=== PATIENT | female | born 1980 | race Caucasian/White ===

== ENCOUNTER 2019-07-19 10:02 | Inpatient (IN) | payer BC, MEDICAID ==
[~2019-07-19] VITALS: Ht 162.6 cm; Wt 70.1 kg
[2019-07-19 10:54] LABS: Basophils # (auto) 0 uL; Basophils % (auto) 0.1 % (0.0-2.0); Eosinophils # (auto) 0.1 uL; Eosinophils % (auto) 0.3 % (0.0-7.0); Hematocrit 46.1 % (36.0-46.0); Hemoglobin 15.6 g/dL (12.2-16.2); Lymphocytes # (auto) 1.3 uL; Lymphocytes % (auto) 7.7 % (10.0-50.0); Mean Corpuscular Hemoglobin 32.4 pg (28.0-32.0); Mean Corpuscular Hgb Conc. 33.9 g/dL (32.0-36.0); Mean Corpuscular Volume 95.6 fL (80.0-100.0); Neutrophils # (auto) 14.5 uL; Neutrophils % (auto) 85.9 % (37.0-80.0); Platelet Count (auto) 290 10^3/uL (140-450); Red Blood Cells 4.82 10^6/uL (4.0-5.20); Red Cell Distribution Width 12.9 % (11.8-14.3); White Blood Cell 16.9 10^3/uL (4.4-10.8)
[2019-07-19 11:03] LABS: Potassium 3.7 mmol/L (3.5-5.1)
[2019-07-19 11:06] LABS: BUN/Creatinine Ratio 6.6; Bilirubin, Total 0.5 mg/dL (0.2-1.0); Total Protein 8.3 g/dL (6.4-8.2)
[2019-07-19 11:16] LABS: Urine Bacteria NONE SEEN /hpf (None Seen); Urine Blood 1+ /uL (Negative); Urine Mucus FEW (None Seen); Urine Specific Gravity 1.024 (1.001-1.035); Urine WBC 2 /hpf (0 - 5)
[2019-07-19] MEDS ORDERED: SODIUM CHLORIDE 0.9% 1,000 ML IV ONE ×2 (11:40)
[2019-07-19] MEDS ORDERED: metroNIDAZOLE 500MG/100ML 100 ML IV ONE (11:45)
[2019-07-19] MEDS ORDERED: ONDANSETRON HCL 4 MG/2 ML VIAL IV ONE (11:45)
[2019-07-19] MEDS ORDERED: DIPHENOXYLATE W/ATROPINE 2.5 MG TAB PO ONE (11:45)
[2019-07-19] MEDS ORDERED: KETOROLAC TROMETH 30 MG/ML 1ML VIAL IV ONE (14:00)
[2019-07-19] MEDS ORDERED: PIPERACILLIN-TAZOB 3.375GM 100 ML IV ONE (14:45)
[2019-07-19] MEDS ORDERED: ACETAMINOPHEN 325 MG TAB PO PRN (20:45)
[2019-07-19] MEDS ORDERED: LOPERAMIDE HCL 2 MG CAP PO PRN (20:45)
[2019-07-19] MEDS ORDERED: HYDROcodone-ACET 5/325MG TAB PO PRN (20:45)
[2019-07-19] MEDS ORDERED: TEMAZEPAM 15 MG CAP PO PRN (20:45)
[2019-07-19 21:04] LABS: Hemoglobin 12.7 g/dL (12.2-16.2)
[2019-07-19] MEDS: MORPHINE SULF INJ 2 MG/ML SYRINGE 1ML IV PRN (21:16)
[2019-07-19] MEDS: ONDANSETRON HCL 4 MG/2 ML VIAL IV PRN (21:16)
[2019-07-19] MEDS: SODIUM CHLORIDE 0.9% 1,000 ML IV SCH (21:30)
[2019-07-19] MEDS: FAMOTIDINE 20 MG TAB PO SCH (21:43)
[2019-07-19] MEDS: metroNIDAZOLE 500MG/100ML 100 ML IV SCH (21:43)
[2019-07-19 22:30] VITALS: BP 127/74
[2019-07-19 23:12] VITALS: BP 127/74
--- NOTE | 2019-07-19 23:26 | NUR ---
MS admit from [facility] admitted to [facility]. Patient oriented to JAMI ZHU, RN primary RN, unit, room, bed, and unit policies regarding patient care. Patient weighed by bedscale and encouraged to call if they need something. All questions and concerns addressed, patient verbalized understanding.
--- NOTE | 2019-07-19 23:27 | NUR ---
GUY ROBISON states they want to leave the floor Against Medical Advice (AMA) to go outside and smoke during her stay. Patient advised of the risks and benefits of leaving AMA. Patient verbalized understanding and signed required AMA form placed in hard chart.
[2019-07-20] VITALS (7 sets, daily range): BP systolic 93–128; BP diastolic 59–83
[2019-07-20] MEDS ORDERED: FLUO-125 PO (05:16)
[2019-07-20] MEDS: ONDANSETRON HCL 4 MG/2 ML VIAL IV PRN ×2 (06:20→20:19)
[2019-07-20] MEDS: MORPHINE SULF INJ 2 MG/ML SYRINGE 1ML IV PRN ×2 (06:21→20:22)
[2019-07-20] MEDS: LOPERAMIDE HCL 2 MG CAP PO PRN (06:21)
[2019-07-20] MEDS: metroNIDAZOLE 500MG/100ML 100 ML IV SCH ×3 (06:27→21:14)
[2019-07-20 06:50] LABS: Basophils # (auto) 0 uL; Basophils % (auto) 0.3 % (0.0-2.0); Eosinophils # (auto) 0.1 uL; Eosinophils % (auto) 1.1 % (0.0-7.0); Hemoglobin 12.6 g/dL (12.2-16.2); Lymphocytes # (auto) 1.8 uL; Lymphocytes % (auto) 14.7 % (10.0-50.0); Mean Corpuscular Hemoglobin 32.4 pg (28.0-32.0); Mean Corpuscular Volume 95.4 fL (80.0-100.0); Monocytes # (auto) 0.9 uL; Monocytes % (auto) 7.2 % (0.0-12.0); Neutrophils # (auto) 9.6 uL; Neutrophils % (auto) 76.7 % (37.0-80.0); Platelet Count (auto) 232 10^3/uL (140-450); Red Blood Cells 3.88 10^6/uL (4.0-5.20); Red Cell Distribution Width 12.6 % (11.8-14.3); White Blood Cell 12.5 10^3/uL (4.4-10.8)
[2019-07-20 07:07] LABS: BUN/Creatinine Ratio 10.3; Calcium 7.8 mg/dL (8.5-10.1); Potassium 3.4 mmol/L (3.5-5.1)
[2019-07-20] MEDS: SODIUM CHLORIDE 0.9% 1,000 ML IV SCH (09:05)
[2019-07-20] MEDS: FAMOTIDINE 20 MG TAB PO SCH ×2 (09:05→21:14)
[2019-07-20] MEDS: cefTRIAXone 1GM/50ML D5W 50 ML IV SCH (09:05)
--- NOTE | 2019-07-20 11:11 | NUR ---
at bedside Dr. Jameson, for GI consult. Pt concerns addressed at this time and pt updated on POC.
[2019-07-20] MEDS ORDERED: POTASSIUM CHL 20MEQ/100ML 100 ML IV ONE (14:00)
[2019-07-20] MEDS ORDERED: CALCIUM CHL 100MG/ML 1,000 MG in D5W 5% 100 ML IV ONE (15:00)
--- NOTE | 2019-07-20 17:32 | NUR ---
Opening Shift Note Assumed care of patient, awake and alert. No S/S of distress/SOB. Instructed on POC and to call for assist PRN, will continue to monitor for changes Q1hr and PRN. Bed set in lowest locked position for safety and call light is within reach.
[2019-07-20] MEDS: CALCIUM W/VIT D (600MG/400IU) TAB PO SCH (18:19)
--- NOTE | 2019-07-20 19:40 | NUR ---
Opening Shift Note Assumed care of patient, awake and alert. No S/S of distress/SOB. With tolerable abdominal pain at this time. Instructed on POC and to call for assist PRN, patient verbalized understanding, call light within reach, will continue to monitor for changes Q1hr and PRN.
[2019-07-21] MEDS: SODIUM CHLORIDE 0.9% 1,000 ML IV SCH (01:22)
[2019-07-21 05:00] VITALS: BP 123/69
[2019-07-21 05:30] LABS: Basophils # (auto) 0 uL; Basophils % (auto) 0.5 % (0.0-2.0); Eosinophils # (auto) 0.2 uL; Eosinophils % (auto) 2.2 % (0.0-7.0); Hematocrit 36.9 % (36.0-46.0); Hemoglobin 12.7 g/dL (12.2-16.2); Lymphocytes # (auto) 1.7 uL; Lymphocytes % (auto) 19.1 % (10.0-50.0); Mean Corpuscular Hemoglobin 33.1 pg (28.0-32.0); Mean Corpuscular Hgb Conc. 34.4 g/dL (32.0-36.0); Mean Corpuscular Volume 96.2 fL (80.0-100.0); Monocytes # (auto) 0.7 uL; Monocytes % (auto) 7.4 % (0.0-12.0); Neutrophils # (auto) 6.4 uL; Neutrophils % (auto) 70.8 % (37.0-80.0); Platelet Count (auto) 235 10^3/uL (140-450); Red Blood Cells 3.84 10^6/uL (4.0-5.20); Red Cell Distribution Width 12.8 % (11.8-14.3); White Blood Cell 9.1 10^3/uL (4.4-10.8)
[2019-07-21 05:40] LABS: INR 1.01 (0.9-1.15); Partial Thromboplastin Time 29.3 sec (23.64-32.05)
[2019-07-21 05:45] LABS: Calcium 8.1 mg/dL (8.5-10.1); Magnesium 1.8 mg/dL (1.6-2.6); Potassium 3.7 mmol/L (3.5-5.1)
[2019-07-21 05:50] LABS: BUN/Creatinine Ratio 6.8; Bilirubin, Total 0.4 mg/dL (0.2-1.0); Phosphorus 2.7 mg/dL (2.5-4.90); Total Protein 6.3 g/dL (6.4-8.2)
[2019-07-21] MEDS: metroNIDAZOLE 500MG/100ML 100 ML IV SCH ×2 (05:51→14:12)
--- NOTE | 2019-07-21 07:20 | NUR ---
Opening Note Received report from night filler RN. Patient is awake, alert and oriented x4. No signs or symptoms of distress noted at this time. Patient is on room air, respirations even and unlabored. Patient denies pain at this time. Reviewed plan of care with patient, patient verbalized understanding. Bed in low and locked position, call light within reach. Will continue to monitor Q1 hour and PRN.
[2019-07-21] MEDS: cefTRIAXone 1GM/50ML D5W 50 ML IV SCH (07:59)
[2019-07-21] MEDS: CALCIUM W/VIT D (600MG/400IU) TAB PO SCH ×2 (08:02→18:00)
[2019-07-21] MEDS: LOPERAMIDE HCL 2 MG CAP PO PRN (08:02)
[2019-07-21] MEDS: FAMOTIDINE 20 MG TAB PO SCH (08:03)
[2019-07-21 09:00] VITALS: BP 113/56
[2019-07-21] MEDS ORDERED: FLUoxetine HCL 20 MG CAP PO SCH (10:00)
[2019-07-21] MEDS ORDERED: POTASSIUM CHL 20 Meq TABLET PO SCH (10:00)
--- NOTE | 2019-07-21 11:14 | NUR ---
Dr. Frias at bedside Discussing plan of care with patient. Instructed this RN to advance patients diet to full liquids, ok to discharge if patients tolerates diet. Will implement new orders, Will continue to monitor Q1 hour and PRN.
--- NOTE | 2019-07-21 12:12 | NUR ---
Nutrition Assessment Notes please see attached link for complete assessment Est. Needs BW 70 [id number] kcal (23-25 kcal/kgBW), 70-77 gms pro (1.0-1.1 gms/kgBW). Will continue to monitor pertinent labs and reassess nutrient need prn Addendum: 07/21/19 at [address] Amended: Links added.
[2019-07-21 13:13] VITALS: BP 141/76
[2019-07-21] MEDS ORDERED: POTA-220 PO (14:20)
[2019-07-21] MEDS ORDERED: FAM20T PO (14:20)
[2019-07-21] MEDS ORDERED: CALC600T80 PO (14:20)
[2019-07-21] MEDS ORDERED: FLUO20CA90 PO (14:20)
[2019-07-21] MEDS ORDERED: METR500T14 PO (14:20)
[2019-07-21] MEDS ORDERED: CIP500T PO (14:20)
[2019-07-21 16:56] VITALS: BP 122/65
--- NOTE | 2019-07-21 18:15 | NUR ---
Patient tolerated regular diet, denies any nausea or vomiting. Will proceed with discharge per MD orders. Signed: 07/21/19 at 1843 by FIDEL AVILEZ <Co-Signature Required> Co-Signed: 07/21/19 at 1843 by ROLY LANGLEY RN RN
--- NOTE | 2019-07-21 18:40 | NUR ---
PATIENT DISCHARGED Discharge instructions given as ordered. Encourage to follow up with PMD as instructed. All questions and concerns addressed. Patient verbalized understanding. Medication reconciliation form completed and copy given to patient. Home medications held in Pharmacy returned to patient. IV removed with catheter intact, pressure dressing applied. Patient refused wheelchair, ambulated with all personal belongings, accompanied by family member. No distress noted at time of departure. Signed: 07/21/19 at 1841 by FIDEL AVILEZ <Co-Signature Required> Co-Signed: 07/21/19 at 1841 by ROLY LANGLEY RN RN
== END 2019-07-21 18:42 | disposition home or self-care (01) | DRG 249 ==
LOC: ER 10:02 → OVERFLOW 10:03 → WEST WING 22:25
PROVIDERS: ADMIT Nurse Practitioner; ATTEND Hospitalist
DX: A09 Infectious gastroenteritis and colitis, unspecified (principal); E83.51 Hypocalcemia; K51.00 Ulcerative (chronic) pancolitis without complications; E86.0 Dehydration; F12.10 Cannabis abuse, uncomplicated; F17.210 Nicotine dependence, cigarettes, uncomplicated; F32.9 Major depressive disorder, single episode, unspecified; D72.829 Elevated white blood cell count, unspecified; F41.9 Anxiety disorder, unspecified; K80.20 Calculus of gallbladder without cholecystitis without obstruction; Z80.0 Family history of malignant neoplasm of digestive organs
CPT/HCPCS: 36415; 74176; 80048; 80053; 80061; 81001; 83036; 83605; 83735; 84100; 85014; 85018; 85025; 85610; 85730; 87040; 87045; 87427; 87493; 96361; 96365; 96375; G0378; J0696; J1885; J2405; J2543; J3480; J3490; J7060